=== PATIENT | male | born 1975 | race Caucasian/White ===

== ENCOUNTER 2017-03-03 12:42 | Emergency (ER) | payer MEDICAID ==
[~2017-03-03] VITALS: Ht 167.6 cm; Wt 115.5 kg
[2017-03-03 12:57] VITALS: Ht 167.6 cm; Wt 115.5 kg
[2017-03-03] MEDS ORDERED: morphine 4 MG/ML VIAL IV STA (13:28)
[2017-03-03] MEDS ORDERED: ONDANSETRON 4 MG INJ IV STA (13:28)
[2017-03-03] MEDS ORDERED: SOD CHLORIDE 0.9% 1,000 ML IV STA (13:28)
[2017-03-03 13:56] LABS: ADD SCAN DIFF NO
[2017-03-03 13:58] LABS: ADD UMIC YES; BASOPHILS % 0.3 % (0.0-2.0); EOSINOPHILS # 0.3 10^3/ul (0.0-0.5); EOSINOPHILS % 3.7 % (0.0-7.0); HEMATOCRIT 43.6 % (42.0-52.0); HEMOGLOBIN 14.6 g/dl (14.0-18.0); LYMPHOCYTES # 2.6 10^3/ul (0.8-2.9); LYMPHOCYTES % 28.3 % (15.0-51.0); MEAN CORPUSCULAR HEMOGLOBIN 29.1 pg (29.0-33.0); MEAN CORPUSCULAR HGB CONC 33.5 g/dl (32.0-37.0); MEAN PLATELET VOLUME 9.2 fl (7.4-10.4); MONOCYTE # 0.7 10^3/ul (0.3-0.9); MONOCYTES % 8.2 % (0.0-11.0); NEUTROPHIL # 5.4 10^3/ul (1.6-7.5); NEUTROPHILS % 59.2 % (39.0-77.0); PLATELET COUNT 355 10^3/UL (140-415); RED BLOOD COUNT 5.01 10^6/ul (4.70-6.10); UR BILIRUBIN (Dip) NEGATIVE (NEGATIVE); UR BLOOD (Dip) NEGATIVE (NEGATIVE); UR CLARITY CLEAR (CLEAR); UR COLOR YELLOW (YELLOW); UR GLUCOSE (Dip) NEGATIVE (NEGATIVE); UR KETONES (Dip) NEGATIVE (NEGATIVE); UR LEUKOCYTE ESTERASE (Dip) NEGATIVE (NEGATIVE); UR NITRITE (Dip) NEGATIVE (NEGATIVE); UR TOTAL PROTEIN (Dip) 2+ (NEGATIVE); UR UROBILINOGEN (Dip) 0.2 E.U./dL (0.1-1.0); WHITE BLOOD COUNT 9.1 10^3/ul (4.8-10.8)
[2017-03-03 14:09] LABS: UR BACTERIA MODERATE; UR MUCUS MANY
--- NOTE | 2017-03-03 14:14 | RADRPT ---
PROCEDURE: CT Abdomen and Pelvis without contrast. CLINICAL INDICATION: Periumbilical pain. Protrusion. TECHNIQUE: CT scan of the abdomen and pelvis without contrast was performed on a multidetector hig h-resolution CT scanner. The patient was scanned without intravenous contrast. Coronal and sagittal reformatted images were obtained from the axial source images. Images were reviewed on a high-resol [employer] PACS workstation. The total exam CTDI equals 23.64 mGy and the total exam DLP equals 1623.70 m Gy-cm. One or more of the following dose reduction techniques were used: Automated exposure control. Adjustment of the mA and/or kV according to patient size. Use of iterative reconstruction technique. COMPARISON: None FINDINGS: CT abdomen: The lung bases are clear. The heart size is normal, without pericardial thickening or effusion. There is hepatomegaly with fatty infiltration. The spleen is normal in size and homogeneous in dens ity. The stomach is partially collapsed, but is grossly unremarkable. The pancreas as visualized i s normal. The gallbladder is unremarkable. There is no evidence for biliary dilatation. The adrena l glands are symmetric and normal. The kidneys are symmetrically unremarkable as well. No renal ca lculus or obstructive uropathy or mass lesion is seen. The aorta is of normal caliber. There is no retroperitoneal lymphadenopathy. The av hepatis von on is clear. The bowel and mesentery, as visualized, are equally unremarkable. There is a small fat containing periumbilical hernia measuring 2.[address] pelvis: The small bowel loops situated within the pelvis are unremarkable. There is a normal appendix. The pelvic organs are normal. The pelvic sidewalls and inguinal regions are clear. The sigmoid colon a nd rectum are unremarkable. No mass, lymphadenopathy, or free fluid is seen. No acute inflammation is seen. No osteolytic or osteoblastic lesion is detected. There is a moderate discogenic disease a t L5-S1 with associated right greater than left neural foraminal stenosis. IMPRESSION: 1. No mass, lymphadenopathy, or focal acute inflammatory process is identified. 2. Small fat containing periumbilical hernia. 3. Normal appendix. 4. Hepatomegaly with fatty infiltration. 5. Moderate discogenic disease at L5-S1. RPTAT: BB .Denisse Manzo MD, MD Date Time Electronically viewed and signed by .Denisse Manzo MD, MD on 03/03/2017 14:14 .O/
[2017-03-03 14:16] LABS: ALBUMIN 5.1 g/dl (3.3-4.9); ALBUMIN/GLOBULIN RATIO 1.59; BILIRUBIN,INDIRECT 0.4 mg/dl (0-1.1); BILIRUBIN,TOTAL 0.4 mg/dl (0.2-1.3); CALCIUM 9.8 mg/dl (8.4-10.2); CREATININE 0.72 mg/dl (0.61-1.24); TOTAL PROTEIN 8.3 g/dl (6.1-8.1)
[2017-03-03] MEDS ORDERED: NAPR-688 PO (14:19)
--- NOTE | 2017-03-03 14:26 | ERD ---
ER Documentation Chief Complaint Date/Time DATE: 03/03/17 TIME: 14:23 Chief Complaint ap around umbilical hernia x 3 days HPI This is a 41-year-old male presenting to the emergency department complaining of pain in his umbilical region for the past 3 days. He states the pain is 8 out of 10, constant and radiates to the right lower quadrant. Patient denies any fever, nausea vomiting diarrhea, constipation. Patient has tried Tylenol yesterday without any relief. He denies taking any other medications, denies any relevant medical problems or abdominal surgeries. Patient states that he has had a lump in his umbilical region since he can remember ROS All systems reviewed and are negative except as per history of present illness. Medications Home Meds Active Scripts Naproxen* (Naproxen*) 500 Mg Tablet, 500 MG PO BID Y for PAIN, #30 TAB Prov:NADJA JASSO PA-C 03/03/17 Allergies Allergies: Coded Allergies: No Known Allergy (Unverified , 03/03/17) PMhx/Soc Medical and Surgical Hx: pt denies Medical Hx, pt denies Surgical Hx History of Surgery: No Anesthesia Reaction: No Hx Neurological Disorder: No Hx Respiratory Disorders: No Hx Cardiac Disorders: No Hx Psychiatric Problems: No Hx Miscellaneous Medical Probl: No Hx Alcohol Use: No Hx Substance Use: No Hx Tobacco Use: No Smoking Status: Never smoker Physical Exam Vitals Vital Signs Date Time Temp Pulse Resp B/P Pulse Ox O2 Delivery O2 Flow Rate FiO2 03/03/17 12:57 98.8 79 16 131/74 96 Physical Exam GENERAL: well-developed/well-nourished, in no apparent distress, non-toxic appearing HENT: NC/AT, moist mucous membranes EYES: Conjunctiva normal NECK: Supple, no lymphadenopathy PULM: CTA bilaterally, no rales, rhonchi, or wheezing heard CV: Normal S1S2, RRR, good capillary refill GI: Soft, non-distended, tender to palpation at the site of umbilical hernia Normal bowel sounds, no masses or organomegaly felt on exam No gross peritonitis, no bruits Negative Rovsing, negative Hall, + McBurney's point, Negative CVAT BACK: No masses EXT: No clubbing, cyanosis, or edema NEURO: Alert and Orientated SKIN: Intact, normal turgor PSYCH: Normal mood and mentation Result Diagram: 03/03/17 1330 03/03/17 1330 Results 24 hrs Laboratory Tests Test 03/03/17 13:30 White Blood Count 9.110^3/ul Red Blood Count 5.0110^6/ul Hemoglobin 14.6g/dl Hematocrit 43.6% Mean Corpuscular Volume 87.0fl Mean Corpuscular Hemoglobin 29.1pg Mean Corpuscular Hemoglobin Concent 33.5g/dl Red Cell Distribution Width 13.0% Platelet Count 37127^3/UL Mean Platelet Volume 9.2fl Neutrophils % 59.2% Lymphocytes % 28.3% Monocytes % 8.2% Eosinophils % 3.7% Basophils % 0.3% Nucleated Red Blood Cells % 0.0/100WBC Neutrophils # 5.410^3/ul Lymphocytes # 2.610^3/ul Monocytes # 0.710^3/ul Eosinophils # 0.310^3/ul Basophils # 0.010^3/ul Nucleated Red Blood Cells # 0.010^3/ul Urine Color YELLOW Urine Clarity CLEAR Urine pH 6.0 Urine Specific Hardy >=1.030 Urine Ketones NEGATIVE Urine Nitrite NEGATIVE Urine Bilirubin NEGATIVE Urine Urobilinogen 0.2 E.U./dL Urine Leukocyte Esterase NEGATIVE Urine Microscopic RBC 2-5/HPF Urine Microscopic WBC 2-5/HPF Urine Epithelial Cells FEW Urine Bacteria MODERATE Urine Mucus MANY Urine Hemoglobin NEGATIVE Urine Glucose NEGATIVE% Urine Total Protein 2+ Sodium Level 143mmol/L Potassium Level 4.0mmol/L Chloride Level 104mmol/L Carbon Dioxide Level 30mmol/L Anion Gap 13 Blood Urea Nitrogen 15mg/dl Creatinine 0.72mg/dl Glucose Level 113mg/dl Calcium Level 9.8mg/dl Total Bilirubin 0.4mg/dl Direct Bilirubin 0.00mg/dl Indirect Bilirubin 0.4mg/dl Aspartate Amino Transf (AST/SGOT) 27IU/L Alanine Aminotransferase (ALT/SGPT) 45IU/L Alkaline Phosphatase 72IU/L Total Protein 8.3g/dl Albumin 5.1g/dl Globulin 3.20g/dl Albumin/Globulin Ratio 1.59 Lipase 45U/L Current Medications Medications (Trade) Dose Ordered Sig/Eric Route PRN Reason Start Time Stop Time Status Last Admin Dose Admin Sodium Chloride (NS) 1,000 ml @ 1,000 mls/hr Q1H STAT IV 03/03/17 13:28 03/03/17 14:27 03/03/17 13:43 Morphine Sulfate (morphine) 8 mg ONCE STAT IV 03/03/17 13:28 03/03/17 13:31 DC 03/03/17 13:42 Ondansetron HCl (Zofran Inj) 4 mg ONCE STAT IV 03/03/17 13:28 03/03/17 13:31 DC 03/03/17 13:42 Procedures/MDM This is a 41-year-old male presenting to the emergency department with a chief complaint of pain at umbilical site for the past 3 days. On examination patient had an umbilical hernia, patient did not know he had a hernia however he states that he has had this lump ever since he can remember. There was no evidence of incarceration or stimulation. No evidence of appendicitis, diverticulitis. Patient was also found to have hepatomegaly on CT. Patient is appropriate to be discharged home to follow-up with the primary care physician to get a referral to see a truck dispatcher for hernia repair. IV access is established. Patient was given 1 L fluids, pain relief and antiemetics. I have reassessed him he is doing a lot better. Lab work was drawn. CBC did not show any evidence of leukocytosis or anemia. CMP did not show any evidence of renal, liver, or electrolyte abnormalities. Lipase was normal. UA did not show any evidence of hemoglobin or urinary tract infection. CT of the abdomen and pelvis without contrast: 1. No mass, lymphadenopathy, or focal acute inflammatory process is identified. 2. Small fat containing periumbilical hernia. 3. Normal appendix. 4. Hepatomegaly with fatty infiltration. 5. Moderate discogenic disease at L5-S1. Stable for discharge for home. Precautions were given to return to the ER for any worsening sinus symptoms. Precautions for incarceration and stimulation were provided. He understands and agrees with this plan Prescription: naproxen was provided Departure Diagnosis: Primary Impression: Umbilical hernia Condition: Stable Patient Instructions: Hernia (Inguinal, Ventral, Umbilical) [facility] Usted se ocasio hecho un examen mdico de control que le indica que no est en james condicin que requiera tratamiento urgente en el Departamento de Emergencia. Un estudio ms profundo y el tratamiento de angulo condicin pueden esperar sin ningn riesgo hasta que usted sea atendida/o en el consultorio de angulo mdico o james cl trang. Es responsabilidad suya arreglar james lenore para el seguimiento del viktoriya. MANEJO DE CONDICIONES NO URGENTES EN EL FUTURO 1) Si usted tiene un mdico de atencin primaria: Usted debera llamar a angulo mdico de atencin primaria antes de venir al departamento de emergencia. Despus de las horas de consultorio, angulo doctor o angulo asociado/a est disponible por telfono. El mdico o enfermero de alexandra en el servicio telefnico puede asesorarle por thien medio para atender el problema, o viktoriya contrario se puede programar james lenore. 2) Si usted no tiene un mdico de atencin primaria: Llame al mdico o clnica de referencia que aparece abajo nithin las horas de consultorio para hacer james lenore para que le vean. CLINICAS: [place] [id number] [phone] [facility] [phone] [facility]. [facility] [phone] [facility]. [place] [id number] [phone] [facility]. [place] [id number] [phone] [facility]. [phone] [address] Additional Instructions: [place] toda la medicina laz y ingrid se le indic. Regrese a estas instalaciones si no se mejora ingrid esperbamos o ingrid le dijimos. Llame al doctor MAANA y yaneth james LENORE PARA DENTRO DE 1-2 ABDI.Dgale a la secretaria que nosotros le instruimos hacer esta lenore.Avise o llame si angulo condicin se empeora antes de la lenore. Regresa aqui si peor o no mejor. Usted necesita jolynn a un mdico general y luego solicitar james remisin consultar a un especialista , lleve estos documentos con usted Usted necesita obtener james referencia de un mdico general para jolynn a un especialista en dos bautista NADJA JASSO PA-C Mar 03, 2017 14:26
[2017-03-03 14:49] VITALS: BP 128/77; PULSE 80; RESP 16; TEMP 98.1
== END 2017-03-03 14:51 | disposition home or self-care (01) ==
LOC: FTE 12:42
DX: K42.9 Umbilical hernia without obstruction or gangrene (principal)
CPT/HCPCS: 74176; 80053; 81001; 83690; 85025; J2270; J2405; J7030; 36415; 96361; 96374; 96375